=== PATIENT | female | born 2000 | race African-American/Black ===

== ENCOUNTER 2024-10-29 15:30 | Emergency (ER) | payer SELFPAY ==
[~2024-10-29] VITALS: Ht 172.7 cm; Wt 85.0 kg
[2024-10-29 15:40] VITALS: BP 126/78; TEMP 36.8; O2SAT 98
[2024-10-29 16:24] VITALS: PULSE 61; RESP 18; O2SAT 96
== END 2024-10-29 19:50 | disposition left against medical advice (07) ==
LOC: ER 15:30
DX: R11.2 Nausea with vomiting, unspecified (principal); Z53.21 Procedure and treatment not carried out due to patient leaving prior to being seen by health care provider